=== PATIENT | male | born 2000 | race Caucasian/White ===

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

== ENCOUNTER 2024-04-10 20:43 | Emergency (ER) | payer SELFPAY ==
--- OUTSIDE RECORDS SUMMARY | 2024-04-10 20:45 | XMS REPORT | Continuity of Care Document ---
Author Name Unknown Address [address] [facility] [address] [id number] [facility] Address [address] [facility] 1 [address] [place] [address] Care Team Providers Care Corrections Corporal Name Role Phone TEENA HARTMAN Attending Clinician Unavailable DAVINA DICKINSON Attending Clinician Unavailable Davina Dickinson MD Attending Clinician [phone], Gal Audio Abr Attending Clinician Unavailable Alison Graham MD Attending Clinician [phone] ALISON GRAHAM Attending Clinician Unavailable Pob, Adc Lab Main Attending Clinician Unavailabl e 2, Chantell [employer] Sound Suite Attending Clinician Xuan chepe Amador PHD, Connie Hartman Attending Clinician [phone] Doctor Unassigned, [place] Attending Clinician U Teena Royal MD Attending Clinician [phone] LUIS SIN Attending Clinician UnavailLUIS Garay Attending Clinician Unavaila ble 1, Adc Sleep Lab Bed Attending Clinician Unavail Luis Melton MD Attending Clinician [phone] Only, Adc Test Attending Clinician Unavailable Vern Marmolejo MD Attending Clinician [phone] DR NURY BLANCO Attending Clinician Unavailab DR NURY Ford Admitting Clinician Unavailab yuli Payers Payer Name Policy Type Policy Number Effective Date Expirati on Date Source [facility] [id number] 2020 00:00:00 Problems Condition Name Condition Details Condition Category Status Onset Date Resolution Date Last Treatment Date Treating Clinician Comments Source Sleep apnea, unspecifie d type Sleep apnea, unspecifie d type Disease Active 2-16 00:00: 00 [facility] Decreased hearing, bilateral Decreased hearing, bilateral Disease Active 09-23 00:00: 00 [facility] Non-season al allergic rhinitis due to other allergic trigger Non-season al allergic rhinitis due to other allergic trigger Disease Active 09-23 00:00: 00 [facility] Need for influenza vaccinatio n Need for influenza vaccinatio n Disease Active 09-23 00:00: 00 [facility] Encounter to establish care Encounter to establish care Disease Active 09-16 00:00: 00 [facility] Attention deficit hyperactiv ity disorder (ADHD), combined type Attention deficit hyperactiv ity disorder (ADHD), combined type Disease Active 09-16 00:00: 00 [facility] Closed fracture of phalanx of left foot Closed fracture of phalanx of left foot Problem Active 2019-08 0 00:00: [address] [facility] (LUF/LI V/SA) Allergies, Adverse Reactions, Alerts Allergy Name Allergy Type Status Severity Reaction(s) Onset Date Inactive Date Treating Clinician Comments Source NO KNOWN ALLERGIE S Drug Class Active [facility] Social History Social Habit Start Date Stop Date Quantity Comments Source History of tobacco use Cigarette Smoker [facility] Exposure to SARS-CoV-2 (event) Not sure [facility] Sex Assigned At 2000 00:00:00 2000 00:00:00 [facility] Smoking Status Start Date Stop Date Source Current every day smoker [facility] (LUF/STEPHEN/SA) Former smoker 2020-12-16 00:00:00 2020-12-16 00:00:00 [facility] Medications Ordered Medication Name Filled Medication Name Start Date Stop Date Current Medication? Ordering Clinician Indication Dosage Frequency Signature (SIG) Comments Components Source Fluocinolon e Acetonide Oil (DERMOTIC OIL) 0.01 % otic drops 12-04 00:00: 00 12-15 04:59 :00 No [id number] 2[drp] Place 2 Drops in each ear 2 (two) times daily for 10 days. [facility] cetirizine (ZYRTEC) 10 mg tablet 09-16 00:00: 00 Yes [id number] 10mg Take 1 tablet by mouth at bedtime as needed for Allergies. [facility] Vital Signs Vital Name Observation Time Observation Value Lani caraballo Systolic blood pressure 2020-12-16 15:31:00 119 mm[Hg] [facility] Diastolic blood pressure 2020-12-16 15:31:00 65 mm[Hg] [facility] Heart rate 2020-12-16 15:31:00 56 /min [facility] Body temperature 2020-12-16 15:31:00 36.44 Caprice [facility] Respiratory rate 2020-12-16 15:31:00 16 /min [facility] Body height 2020-12-16 15:31:00 170.2 cm [facility] Body weight 2020-12-16 15:31:00 89.177 kg [facility] BMI 2020-12-16 15:31:00 30.79 kg/m2 [facility] Oxygen saturation in Arterial blood by Pulse oximetry 2020-12-16 15:31:00 99 /min [facility] Body temperature 2020-12-04 17:57:00 36.72 Caprice [facility] Body height 2020-12-04 17:57:00 170.2 cm [facility] Body weight 2020-12-04 17:57:00 88.905 kg [facility] BMI 2020-12-04 17:57:00 30.70 kg/m2 [facility] Systolic blood pressure 2020-09-16 19:50:00 136 mm[Hg] [facility] Diastolic blood pressure 2020-09-16 19:50:00 71 mm[Hg] [facility] Heart rate 2020-09-16 19:50:00 91 /min [facility] Body temperature 2020-09-16 19:50:00 36.72 Caprice [facility] Respiratory rate 2020-09-16 19:50:00 18 /min [facility] Body height 2020-09-16 19:50:00 175.3 cm [facility] Body weight 2020-09-16 19:50:00 88.451 kg [facility] BMI 2020-09-16 19:50:00 28.80 kg/m2 [facility] Oxygen saturation in Arterial blood by Pulse oximetry 2020-09-16 19:50:00 96 /min [facility] Height 2020-05-19 00:34:00 172.72 CM Weight 2020-05-19 00:34:00 85.27 KG Body Temperature 2020-05-19 01:36:00 98 [degF] [facility] (LUF/STEPHEN/SA) Pulse Rate 2020-05-19 01:36:00 80 /min [facility] (LUF/STEPHEN/SA) Respiratory Rate 2020-05-19 01:36:00 16 /min [facility] (LUF/STEPHEN/SA) O2% BldC Oximetry 2020-05-19 01:36:00 98 % [facility] (LUF/STEPHEN/SA) BP Systolic 2020-05-19 01:36:00 155 mm[Hg] [facility] (LUF/STEPHEN/SA) BP Diastolic 2020-05-19 01:36:00 78 mm[Hg] [facility] (LUF/STEPHEN/SA) Height 2020-05-19 00:34:00 68 [in_i] [facility] (LUF/STEPHEN/SA) Weight 2020-05-19 00:34:00 188 [lb_av] [facility] (LUF/STEPHEN/SA) BMI (Body Mass Index) 2020-05-19 00:34:00 28.8 kg/m2 [facility] (LUF/STEPHEN/SA) Procedures Procedure Date / Time Performed Performing Clinicia n Source EXTERNAL PROVIDER RECORDS 2020-12-03 05:01:00 Doctor Unassigned, [place] [facility] ASSIGNMENT OF BENEFITS 2020-10-22 20:40:43 Docto r Unassigned, [place] [facility] FLU VACC ([id number]), 6+ MONTHS, IM, QUAD 2020-09-16 21:38:50 Teena Hartman [facility] Encounters Start Date/Time End Date/Time Encounter Type Admission Type Attending Clinicians Care Facility Care Department Encounter ID Source 2020-12-31 10:40:00 2020-12-31 10:40:00 Outpatient TEENA CHACON [facility] [id number] [facility] 2020-12-30 15:00:00 2020-12-30 15:00:00 Outpatient R [facility] [id number] [facility] 2020-12-30 00:00:00 2020-12-30 00:00:00 [facility]114 [id number] [id number] [id number] [facility] 2020-12-16 13:32:22 2020-12-16 14:35:56 Ancillary Visit 2, Gal Audio Abr Alison Graham [facility] 1.20.114 [id number] [id number] [id number] [facility] 2020-12-16 10:20:28 2020-12-16 10:50:28 Office Visit Sultana Alison [facility] 1..114 [id number] [id number] [id number] [facility] 2020-12-16 10:30:00 2020-12-16 10:30:00 Outpatient R ALISON GRAHAM [facility] [id number] [facility] 2020-12-13 08:58:00 2020-12-13 23:59:00 [facility] 1.2.114 [id number] [id number] [id number] [facility] 2020-12-13 00:00:00 2020-12-13 00:00:00 Outpatient R [facility] [id number] [facility] 2020-12-08 14:54:15 2020-12-08 23:59:00 Hospital Encounter Davina Dickinson [facility] 1.20.114 [id number] [id number] [id number] [facility] 2020-12-08 14:54:27 2020-12-08 15:09:27 Grocery Clerk Selling Visit Pob, Adc Lab Main Alok [facility] Profess[facility] nal Building 1.2.114 350.1.13.10 [id number] [id number] [facility] 2020-12-08 00:00:00 2020-12-08 00:00:00 Outpatient R [facility] [id number] [facility] 2020-12-04 13:00:00 2020-12-04 13:00:00 Outpatient R [facility] [id number] [facility] 2020-12-04 11:41:40 2020-12-04 12:26:40 Ancillary Visit 2, Chantell [employer] Suite Connie Amador [facility] 1..114 350.1.13.10 [id number] [id number] [facility] 2020-12-04 11:42:02 2020-12-04 11:57:02 [facility]114 350.1.13.10 [id number] [id number] [facility] 2020-12-03 00:00:00 2020-12-03 00:00:00 Orders Only Doctor Unassigned, [place] [facility] 1.20.114 350.1.13.10 4.2.7.2.686 [id number] [facility] 2020-11-17 08:30:00 2020-11-17 08:30:00 Outpatient R ALISON GRAHAM [facility] [id number] [facility] 2020-10-28 00:00:00 2020-10-28 00:00:00 Telephone Teena Hartman [facility] Professio [facility] 1.20.114 350.1.13.10 4.2.7.2.686 [id number] [facility] 2020-10-24 19:30:00 2020-10-24 19:30:00 Outpatient R LUIS SIN STRAGAMinnie [facility] [id number] [facility] 2020-10-24 15:21:20 2020-10-24 17:51:20 Grocery Clerk Selling Visit 1, [facility] Sleep Lab Bed Jailene Sinkamini [facility] 1.20.114 350.1.13.10 4.2.7.2.686 [id number] [facility] 2020-10-22 15:46:27 2020-10-22 16:01:27 Laboratory Only Only, [facility] Test Vern Marmolejo [facility] 1.20.114 350.1.13.10 4.2.7.2.686 [id number] [facility] 2020-10-22 15:45:00 2020-10-22 15:45:00 Outpatient R [facility] [id number] [facility] 2020-10-22 00:00:00 2020-10-22 00:00:00 Orders Only Doctor Unassigned, [place] [facility] [id number] 350.1.13.10 4.2.7.2.686 [id number] [facility] 2020-10-11 19:30:00 2020-10-11 19:30:00 Outpatient R LUIS SIN STRAHIL [facility] [id number] [facility] 2020-10-08 15:30:00 2020-10-08 15:30:00 Outpatient R [facility] [id number] [facility] 2020-09-16 13:43:15 2020-09-16 15:46:38 Office Visit NormananmrataangelaTeena [facility] Professio [facility] [id number] [id number] [id number] [id number] [facility] 2020-09-16 14:00:00 2020-09-16 14:00:00 Outpatient R TEENA HARTMAN [facility] [id number] [facility] 2020-05-18 23:58:00 2020-05-19 01:38:00 DSPL FX PRX PHAL LT LSR TOE INIT CL 1 NURY BLANCO [facility], [address], [place] [address] [facility] [id number] [facility] (LUF/LI V/SA) Results Test Description Test Time Test Comments Results Result Comments Source XR FOOT COMP MIN 3 VW 01:54:16 XR LEFT FOOT COMP MIN 3 VW - 3 viewsHISTORY: Pain. [id number]: Traumatic injuryCOMPARISON: None available.FINDINGS:Bone s:Acute to subacute minimally displaced fracture of the base of the fifth proximalphalanx with mild lateral angulation of the distal fragment. No intra-articularinvolvem ent.Joints:The joint spaces are well-maintained.IMPRESS ION:Acute to subacute minimally displaced fracture of the base of the fifth proximalphalanxThis final report was electronically signed by Dr Marlon Forrester 05/19/2020 1:47 AMDictated By: MARLON FORRESTERDate: 05/19/2020 01:47 [facility] Notes Date/Time Note Provider Source 2020-05-19 01:38:00 Discharge Instructions 2 Discharge Diagnosis Toe Fracture Important Information Consult your physician or return to the Emergency Department immediately if worse, if not better as expected, or if any problems arise. Follow Up Care Yes Important Information Please understand that you have received care only on an emergency basis. If your condition does not improve, you should call your personal physician for follow-up care. If you do not have a physician, you may call the referred physician listed. If you have questions about your care or these discharge instructions, you may call the Emergency Department. Please take your discharge paperwork with you to any follow-up appointments. Follow-Up With: Primary Care Physician Activity Level As tolerated, unrestricted Diet Regular Prescriptions Given Via: N/A Patient Teaching Patient education provided [facility] (LUF/STEPHEN/SA)
--- NOTE | 2024-04-10 21:03 | EDPHYS ---
Physician Documentation [facility] Name: Jeremiah Giles IV Age: 24 yrs Sex: Male : 2000 Arrival Date: 04/10/2024 Time: 20:43 Bed IW2 Private MD: ED Physician Max Mendez HPI: 04/10 21:22 This 24 yrs old Male presents to ER via Ambulatory with complaints of Rash. kb 21:22 Pt is a 24 year old male who presents with rash that started 4 days ago. c/o itching. kb States he believes it is from poison philip or poison oak. Historical: - Allergies: 21:19 No Known Allergies; jb4 - PMHx: 21:19 None; jb4 - PSHx: 21:19 None; jb4 - Immunization history:: Adult Immunizations up to date. - Infectious Disease History:: Denies. - Social history:: Smoking status: Reported history of juuling and/or vaping. ROS: 21:21 Constitutional: As per HPI kb Exam: 21:21 Constitutional: This is a well developed, well nourished patient who is awake, alert, kb and in no acute distress. Head/Face: Normocephalic, atraumatic. ENT: Moist Mucous membranes Cardiovascular: Regular rate Respiratory: Respirations even and unlabored. No increased work of breathing. Talking in full sentences MS/ Extremity: Pulses equal, no cyanosis. Neurovascular intact. Full, normal range of motion. Neuro: Awake and alert, GCS 15, oriented to person, place, time, and situation. Moves all extremities. Normal gait. 21:21 Skin: rash a moderate rash is noted, consistent with contact dermatitis, and is diffusely located, Vital Signs: 21:17 BP 132 / 71; Pulse 74; Resp 16; Temp 97.4(TE); Pulse Ox 100% on R/A; Weight 90.72 kg jb4 (R); Height 5 ft. 7 in. (R); 21:17 Body Mass Index 31.32 (90.72 kg, 170.18 cm) jb4 MDM: 20:52 Patient medically screened. kb 21:21 Differential diagnosis: impetigo, allergic reaction, parasite infection. Data reviewed: kb vital signs, nurses notes. Counseling: I had a detailed discussion with the patient and/or guardian regarding the historical points, exam findings, and any diagnostic results supporting the discharge/admit diagnosis, the need for outpatient follow up, a family practitioner, to return to the emergency department if symptoms worsen or persist or if there are any questions or concerns that arise at home. ED course: Rash consistent with contact dermatitis. Secondary infection to left leg with erythema and swelling. Administered Medications: 21:17 Drug: Famotidine PO 20 mg PO once Route: PO; jb4 21:17 Drug: predniSONE PO 60 mg PO once Route: PO; jb4 21:17 Drug: Cephalexin PO 500 mg PO once Route: PO; jb4 Disposition: 04/11 04:56 Co-signature as Attending Physician, Max Mendez MD I agree with the assessment and ángel plan of care. Disposition Summary: 04/10/24 21:03 Discharge Ordered Notes: Location: Home kb Condition: Stable kb Diagnosis - Allergic contact dermatitis, unspecified cause kb - Local infection of the skin and subcutaneous tissue, unspecified kb Followup: kb - With: Emergency Department - When: As needed - Reason: Worsening of condition Followup: kb - With: Private Physician - When: 2 - 3 days - Reason: Recheck today's complaints, Continuance of care, Re-evaluation by your physician Discharge Instructions: - Discharge Summary Sheet kb - Wound Infection, [id number] kb - Contact Dermatitis, [id number] kb Forms: - Medication Reconciliation Form kb - Antibiotic Education kb - Prescription Opioid Use kb - Patient Portal Instructions kb - Leadership Thank You Letter kb Prescriptions: - Cephalexin 500 mg Oral Capsule - take 1 capsule ORAL route every 8 hours for 10 days; 30 capsule; Refills: 0, kb Product Selection Permitted - Pepcid 20 mg Oral Tablet - take 1 tablet ORAL route every 12 hours for 5 days; 10 tablet; Refills: 0, kb Product Selection Permitted - Prednisone 20 mg Oral Tablet - take 1 tablet ORAL route once daily for 5 days; 5 tablet; Refills: 0, Product kb Selection Permitted Signatures: Kailee Wallis FNP-C FNP-Max Gutierrez MD MD cha Bryson, James RN RN jb4 Corrections: (The following items were deleted from the chart) 04/10 21:19 21:19 Social history: Smoking status: Patient denies any tobacco usage or history of. jb4 jb4
[2024-04-10] MEDS ORDERED: predniSONE 20 MG TAB ONE (21:12)
[2024-04-10] MEDS ORDERED: CEPHALEXIN 250 MG CAP ONE (21:13)
[2024-04-10] MEDS ORDERED: FAMOTIDINE 20 MG TAB ONE (21:13)
--- NOTE | 2024-04-10 21:22 | ER ---
Nurse's Notes [facility] Name: Jeremiah Giles IV Age: 24 yrs Sex: Male : 2000 Arrival Date: 04/10/2024 Time: 20:43 Bed IW2 Private MD: Diagnosis: Allergic contact dermatitis, unspecified cause;Local infection of the skin and subcutaneous tissue, unspecified Presentation: 04/10 21:17 Chief complaint: Patient states: I started having a rash all over about 4 days ago. I jb4 think I got into poison CARLOS while cutting down some trees. Coronavirus screen: At this time, the client does not indicate any symptoms associated with coronavirus-19. Ebola Screen: No symptoms or risks identified at this time. Initial Sepsis Screen: Does the patient meet any 2 criteria? No. Patient's initial sepsis screen is negative. Does the patient have a suspected source of infection? No. Patient's initial sepsis screen is negative. Risk Assessment: Do you want to hurt yourself or someone else? Patient reports no desire to harm self or others. Onset of symptoms was April 10, 2024. Transition of care: patient was not received from another setting of care. 21:17 Method Of Arrival: Ambulatory jb4 21:17 Acuity: THANH 5 jb4 Triage Assessment: 21:19 General: Appears in no apparent distress. comfortable, Behavior is calm, cooperative, jb4 appropriate for age. Pain: Denies pain. Respiratory: Airway is patent Respiratory effort is even, unlabored, Respiratory pattern is regular, symmetrical. Derm: Skin is intact, Skin is pink, warm \T\ dry. Musculoskeletal: Circulation, motion, and sensation intact. Range of motion: intact in all extremities. Historical: - Allergies: 21:19 No Known Allergies; jb4 - PMHx: 21:19 None; jb4 - PSHx: 21:19 None; jb4 - Immunization history:: Adult Immunizations up to date. - Infectious Disease History:: Denies. - Social history:: Smoking status: Reported history of juuling and/or vaping. Screenin:[facility] Fall Risk Assessment (Adult) History of falling in the last 3 months, jb4 including since admission No falls in past 3 months (0 pts) Confusion or Disorientation No (0 pts) Intoxicated or Sedated No (0 pts) Impaired Gait No (0 pts) Mobility Assist Device Used No (0 pt) Altered Elimination No (0 pt) Score/Fall Risk Level 0 - 2 = Low Risk Oriented to surroundings, Maintained a safe environment. Abuse screen: Denies threats or abuse. Nutritional screening: No deficits noted. Tuberculosis screening: No symptoms or risk factors identified. Assessment: 21:20 Reassessment: see triage note. jb4 Vital Signs: 21:17 BP 132 / 71; Pulse 74; Resp 16; Temp 97.4(TE); Pulse Ox 100% on R/A; Weight 90.72 kg jb4 (R); Height 5 ft. 7 in. (R); 21:17 Body Mass Index 31.32 (90.72 kg, 170.18 cm) jb4 ED Course: 20:45 Patient arrived in ED. jj6 20:52 Kailee Wallis FNP-C is [facility]. kb 20:52 Max Mendez MD is Attending Physician. kb 21:19 Triage completed. jb4 21:19 Arm band placed on right wrist. jb4 21:20 Patient has correct armband on for positive identification. Bed in low position. Call jb4 light in reach. Side rails up X 1. Provided Education on: discharge instructions.. 21:20 No provider procedures requiring assistance completed. Patient did not have IV access jb4 during this emergency room visit. Administered Medications: 21:17 Drug: Famotidine PO 20 mg PO once Route: PO; jb4 21:17 Drug: predniSONE PO 60 mg PO once Route: PO; jb4 21:17 Drug: Cephalexin PO 500 mg PO once Route: PO; jb4 Medication: 21:20 VIS not applicable for this client. jb4 Outcome: 21:03 Discharge ordered by . irma 21:20 Discharged to home ambulatory, jb4 21:20 Condition: stable 21:20 Discharge instructions given to patient, Instructed on discharge instructions, follow up and referral plans. no drinking with medication, medication usage, Demonstrated understanding of instructions, follow-up care, medications, Prescriptions given X 3, 21:22 Patient left the ED. jb4 Signatures: Kailee Wallis FNP-C FNP-Ckb Bryson, James, RN RN jb4 Claudia Valdovinos jj6 Corrections: (The following items were deleted from the chart) 21:19 21:19 Social history: Smoking status: Patient denies any tobacco usage or history of. jb4 jb4
[2024-04-10 21:27] VITALS: BP 132/71; TEMP 97.4; O2SAT 100
== END 2024-04-10 21:22 | disposition home or self-care (01) ==
LOC: ER 20:43
DX: L23.9 Allergic contact dermatitis, unspecified cause (principal); L08.9 Local infection of the skin and subcutaneous tissue, unspecified
CPT/HCPCS: 99283; J7512